=== PATIENT | female | born 1960 | race Caucasian/White ===

== ENCOUNTER → 2018-11-06 | Day surgery (SDC) | payer OTHER ==
[~2018-11-06] MED LIST: CALCIUM500 M1 PO; LISINOPRIL20 MG PO; NORVASC2.5 MG PO; VITAMIN D35000 UNI1 PO
== END | disposition home or self-care (01) ==
LOC: CIR.AMB 11-05 14:13
DX: C54.1 Malignant neoplasm of endometrium (principal); N72 Inflammatory disease of cervix uteri

== ENCOUNTER 2022-01-04 09:30 | Outpatient (CLI) | payer OTHER | END 2022-01-04 09:43 | disposition home or self-care (01) | LOC: RX STUDY 09:30 | PROVIDERS: ATTEND Internal Medicine Gastroenterology | DX: R13.14 Dysphagia, pharyngoesophageal phase (principal); K22.2 Esophageal obstruction ==